=== PATIENT | male | born 1970 | race African-American/Black ===

== ENCOUNTER 2017-12-11 19:19 | Emergency (ER) | payer SELFPAY ==
[~2017-12-11] VITALS: Ht 185.4 cm; Wt 102.1 kg
[2017-12-11 21:57] LABS: HEMATOCRIT 42.9 % (38.0-50.0); HEMOGLOBIN 14.3 G/DL (12.5-16.6); MCH 27.4 PG (29.0-34.0); MCHC 33.3 G/DL (30.0-36.0); MCV 82.3 FL (86-99); RBC DIS.WIDTH-CV 13.9 % (11.8-14.6); RBC DIS.WIDTH-SD 41.8 % (39-53); RED BLOOD COUNT 5.21 M/uL (4.00-5.50); WHITE BLOOD COUNT 3.1 K/uL (4.1-10.2)
[2017-12-11 22:07] LABS: ALBUMIN 4.2 g/dL (3.2-4.8); CHLORIDE 105 mEq/L (99-109); POTASSIUM 4.1 mEq/L (3.7-5.4); SODIUM 139 mEq/L (136-147)
[2017-12-11 22:10] LABS: GLUCOSE 83 mg/dL (70-99); TOTAL PROTEIN 7.3 g/dL (6.4-8.3)
[2017-12-11 22:12] LABS: TOTAL BILIRUBIN 0.5 mg/dL (0.0-1.0)
[2017-12-11 22:13] LABS: ALKALINE PHOSPHATASE 62 IU/L (3-129); CREATININE 1.2 mg/dL (0.6-1.3); GFR ESTIMATE (CALCULATED) > 59 mL/min/ (58.99-99999)
[2017-12-11 22:14] LABS: UREA NITROGEN (BUN) 10 mg/dL (9-23)
[2017-12-11 22:15] LABS: AST (GOT) 19 IU/L (2-34)
[2017-12-11 22:16] LABS: ALT (GPT) 22 IU/L (3-49)
[2017-12-11 22:44] LABS: PLAT.SUFFICIENCY DECREASED; PLATELET COUNT 180 K/uL (156-360)
[2017-12-11 23:21] VITALS: BP 156/108
== END 2017-12-11 23:22 | disposition home or self-care (01) ==
LOC: EME 19:19
PROVIDERS: Physician Assistant
DX: K59.00 Constipation, unspecified (principal)
CPT/HCPCS: 74019; 80053; 85027; 99281; 99284

== ENCOUNTER 2017-12-12 19:20 | Emergency (ER) | payer SELFPAY ==
[~2017-12-12] VITALS: Ht 182.9 cm; Wt 99.2 kg
[2017-12-12 20:41] LABS: HEMATOCRIT 44.6 % (38.0-50.0); HEMOGLOBIN 14.9 G/DL (12.5-16.6); MCH 27.6 PG (29.0-34.0); MCHC 33.4 G/DL (30.0-36.0); MCV 82.6 FL (86-99); PLATELET COUNT 181 K/uL (156-360); RBC DIS.WIDTH-SD 41.9 % (39-53); WHITE BLOOD COUNT 2.9 K/uL (4.1-10.2)
[2017-12-12 20:53] LABS: CHLORIDE 105 mEq/L (99-109); POTASSIUM 4.4 mEq/L (3.7-5.4); SODIUM 138 mEq/L (136-147)
[2017-12-12 20:59] LABS: GFR ESTIMATE (CALCULATED) > 59 mL/min/ (58.99-99999)
[2017-12-12 21:00] LABS: UREA NITROGEN (BUN) 9 mg/dL (9-23)
[2017-12-12 21:01] LABS: GLUCOSE 116 mg/dL (70-99)
[2017-12-12 21:40] LABS: APPEARANCE CLEAR ((CLEAR)); BILIRUBIN NEGATIVE; BLOOD NEGATIVE; COLOR STRAW ((YELLOW)); GLUCOSE (STRIP) NEGATIVE; KETONES NEGATIVE; LEUKOCYTES NEGATIVE; NITRITE NEGATIVE; PROTEIN (STRIP) NEGATIVE; SPECIFIC GRAVITY 1.005 (1.000-1.030); UCUL ADDED? NO; UROBILINOGEN 0.2 MG/DL (0.2-1.0)
[2017-12-13] MEDS ORDERED: MIRALAX119 GM PO (00:22)
[2017-12-13 00:28] VITALS: BP 144/101
== END 2017-12-13 00:29 | disposition home or self-care (01) ==
LOC: EME 19:20
DX: K59.00 Constipation, unspecified (principal); R51 Headache; K80.20 Calculus of gallbladder without cholecystitis without obstruction
CPT/HCPCS: 74177; 80048; 81003; 85027; 99281; 99285; J1885; J7030

== ENCOUNTER 2017-12-15 21:13 | Emergency (ER) | payer OTHER ==
[~2017-12-15] VITALS: Ht 185.4 cm; Wt 101.9 kg
[~2017-12-15 21:13] MED LIST: MIRALAX119 GM PO
[2017-12-15 21:36] LABS: HEMATOCRIT 43.5 % (38.0-50.0); HEMOGLOBIN 14.7 G/DL (12.5-16.6); MCHC 33.8 G/DL (30.0-36.0); MCV 82.9 FL (86-99); RBC DIS.WIDTH-SD 42.5 % (39-53); RED BLOOD COUNT 5.25 M/uL (4.00-5.50); WHITE BLOOD COUNT 2.9 K/uL (4.1-10.2)
[2017-12-15 21:51] LABS: CHLORIDE 104 mEq/L (99-109); POTASSIUM 4.1 mEq/L (3.7-5.4); SODIUM 140 mEq/L (136-147)
[2017-12-15 21:53] LABS: GLUCOSE 98 mg/dL (70-99)
[2017-12-15 21:57] LABS: CREATININE 1.1 mg/dL (0.6-1.3); GFR ESTIMATE (CALCULATED) > 59 mL/min/ (58.99-99999)
[2017-12-15 21:58] LABS: UREA NITROGEN (BUN) 7 mg/dL (9-23)
[2017-12-15 22:03] LABS: TROP-I INTERPRETATION NEGATIVE; TROPONIN-I < 0.01 ng/mL (0.0-0.30)
[2017-12-15 22:11] LABS: PLAT.SUFFICIENCY ADEQUATE; PLATELET COUNT 194 K/uL (156-360)
[2017-12-16] MEDS ORDERED: HYDROCHLOROTHIA25 MG PO (00:54)
[2017-12-16 01:20] VITALS: BP 123/89
== END 2017-12-16 01:24 | disposition home or self-care (01) ==
LOC: EME 21:13
DX: I10 Essential (primary) hypertension (principal)
CPT/HCPCS: 70450; 71046; 80048; 84484; 85027; 93005; 99281; 99284